=== PATIENT | male | born 1955 | race Caucasian/White ===

== ENCOUNTER 2017-06-05 08:13 | Day surgery (SDC) | payer MEDICARE, MEDICAID ==
[2017-06-05] MEDS ORDERED: Propofol 200 MG/20 ML SDV IV ONE (08:14)
[2017-06-05] MEDS ORDERED: Lactated Ringers 1,000 ML IV SCH (08:30)
[2017-06-05 09:07] VITALS: BP 143/103
--- NOTE | 2017-06-05 10:51 | PCM.OPNOTE ---
- General Post-Op/Procedure Note Date of Surgery/Procedure: 06/05/17 Operative Procedure(s): c scope with hot loop and cold forcep biopsy. Findings: cecal polyp x 2 descending colon polyp sigmoid colon polyp Pre Op Diagnosis: personal hx of colon polyps. prostate cancer Post-Op Diagnosis: cecal polyp x 2. descending colon polyp. sigmoid colon polyp Anesthesia Technique: MAC Primary Surgeon: Jorje Manriquez Anesthesia Provider: Joanie Moore Pathology: cecal polyp x 2 descending colon polyp sigmoid colon polyp EBL in mLs: 0 Complications: None Condition: Good Free Text/Narrative:: see dictation
--- NOTE | 2017-06-05 17:38 | OR ---
DATE OF OPERATION: 06/05/2017 SURGEON: Jorje Manriquez MD PROCEDURE PERFORMED: Colonoscopy with hot loop and cold forceps biopsy. PREOPERATIVE DIAGNOSES: Personal history of colon polyps as well as history of prostate cancer. POSTOPERATIVE DIAGNOSES: Cecal polyp x2, descending colon polyp, and sigmoid colon polyp. INDICATIONS FOR PROCEDURE: Mr. Gray is a 62-year-old white male who is due for a followup colonoscopy in several years. He has a personal history of adenomatous colon polyps. However, he is scheduled for a procedure for his prostate cancer at [facility] in [place], and they are requesting an early colonoscopy to ensure that his colon is clear of any significant pathology. DESCRIPTION OF PROCEDURE: After an excellent IV sedation was administered, digital rectal exam was performed. No marked abnormality was noted. The flexible colonoscope was inserted and advanced to the cecum without difficulty. The following findings were noted: Ascending colon: In the cecum, there were 2 polyps, one small polypoid lesion approximately 2 mm in size. This was biopsied, and in the same area was a sessile-appearing lesion approximately 8 mm in size, and this was biopsied with a combination of hot loop and cold forceps biopsy. Remainder of the ascending colon was unremarkable. Transverse colon was unremarkable. Descending colon: A small polyp, biopsied with cold biopsy forceps and sent for permanent. This was approximately 5 mm in size. Sigmoid colon: Small, sessile-appearing lesion roughly 5 mm, biopsied with the hot loop snare. Rectum and anus unremarkable. Colon was deflated as the scope was removed. The patient tolerated the procedure well and was taken to Recovery in good condition. /[id number] /MODL
== END 2017-06-05 11:53 | disposition home or self-care (01) ==
LOC: FB.SDS 08:13
PROVIDERS: ATTEND Surgery
DX: Z12.11 Encounter for screening for malignant neoplasm of colon (principal); D12.0 Benign neoplasm of cecum; D12.5 Benign neoplasm of sigmoid colon; K63.5 Polyp of colon; Z86.010 Personal history of colon polyps; Z79.899 Other long term (current) drug therapy; F17.210 Nicotine dependence, cigarettes, uncomplicated
CPT/HCPCS: 00811-QZ; 88305; J2704; J7120

== ENCOUNTER 2017-09-14 15:18 | Emergency (ER) | payer MEDICARE, MEDICAID ==
--- NOTE | 2017-09-14 15:54 | EDM.PDOC ---
ED HPI GENERAL MEDICAL PROBLEM - General Chief Complaint: Genitourinary Problem Stated Complaint: ISSUE WITH CATH Time Seen by Provider: 09/14/17 15:30 Source of Information: Reports: Patient, Family History Limitations: Reports: No Limitations - History of Present Illness INITIAL COMMENTS - FREE TEXT/NARRATIVE: Liam comes into [facility] ED with a leaking Felton catheter, status post TURP at [facility] September 04, 2017. He is wearing a leg bag which appears to be functioning normally. He has not observed any blood or discoloration in clothing. Inspection of catheter reveals a cracked device of the Felton with some seepage of urine at the connection. An attempt to repair is suggested before replacement , scheduled in 1 week. - Related Data Allergies Allergy/AdvReac Type Severity Reaction Status Date / Time No Known Allergies Allergy Verified 09/14/17 15:39 Home Meds: Home Meds Albuterol Sulfate [Proair Hfa] 1 - 2 puff INH Q4H PRN 01/11/15 [History] Aspirin [Halfprin] 81 mg PO DAILY 01/11/15 [History] Budesonide/Formoterol [Symbicort 160-4.5 MCG] 2 puff INH BID 01/11/15 [History] Losartan Potassium [Cozaar] 50 mg PO DAILY 01/11/15 [History] Multivitamin with Minerals [Multiple Vitamin] 1 tab PO DAILY 01/11/15 [History] Sildenafil [Viagra] 100 mg PO BEDTIME PRN 01/11/15 [History] Varenicline [Chantix] 1 mg PO BID 06/04/17 [History] Past Medical History HEENT History: Reports: Impaired Vision, Macular Degeneration Cardiovascular History: Reports: Hypertension Respiratory History: Reports: Asthma Gastrointestinal History: Reports: Colon Polyp Other Gastrointestinal History: COLON POLYPS Genitourinary History: Reports: Other (See Below) Other Genitourinary History: prostate CA Musculoskeletal History: Reports: Fracture Neurological History: Reports: None Psychiatric History: Reports: None Endocrine/Metabolic History: Reports: Obesity/BMI 30+ Hematologic History: Reports: None Immunologic History: Reports: None Oncologic (Cancer) History: Reports: Prostate Dermatologic History: Reports: None - Past Surgical History Head Surgeries/Procedures: Reports: None HEENT Surgical History: Reports: None Cardiovascular Surgical History: Reports: None Respiratory Surgical History: Reports: None GI Surgical History: Reports: Colonoscopy, Hernia Repair/Other Male Surgical History: Reports: Prostate Biopsy, Vasectomy Endocrine Surgical History: Reports: None Neurological Surgical History: Reports: None Musculoskeletal Surgical History: Reports: Other (See Below) Other Musculoskeletal Surgeries/Procedures:: neck surgery, ankle surgery with plates installed, sternum fx with surgery Dermatological Surgical History: Reports: None Social & Family History - Caffeine Use Caffeine Use: Reports: Coffee ED ROS GENERAL - Review of Systems Review Of Systems: ROS reveals no pertinent complaints other than HPI. ED EXAM, RENAL/ - Physical Exam Exam: See Below Exam Limited By: No Limitations General Appearance: Alert, WD/WN, No Apparent Distress Head: Normocephalic Neck: Normal Inspection, Supple, Non-Tender Respiratory/Chest: Lungs Clear, Normal Breath Sounds, Chest Non-Tender Cardiovascular: Regular Rate, Rhythm, No Murmur GI/Abdominal: Normal Bowel Sounds, Soft, Non-Tender, No Organomegaly, No Distention, No Mass (Male) Exam: No Hernia, Normal Inspection, Circumcised Rectal (Males) Exam: Deferred Back Exam: Normal Inspection Extremities: Normal Inspection Neurological: Alert, Oriented, CN II-XII Intact, Normal Cognition, Normal Gait, No Motor/Sensory Deficits Psychiatric: Normal Affect, Normal Mood Skin Exam: Warm, Dry, Intact Lymphatic: No Adenopathy Course - Vital Signs Text/Narrative:: Efforts to seal the defective device were unsuccessful, so Liam was given a clamp to wear on the Felton cath that will be released every 6 hrs into the leg bag or the commode for convenience. This seems to have solved the leaking problem ahead of his follow up appt at [facility]. Last Recorded V/S: Last Vital Signs Temp 36.8 C 09/14/17 15:35 Pulse 79 09/14/17 15:35 Resp 18 09/14/17 15:35 BP 147/78 H 09/14/17 15:35 Pulse Ox 98 09/14/17 15:35 Departure - Departure Time of Disposition: 16:20 Disposition: Home, Self-Care 01 Condition: Good Clinical Impression: S/P TURP (status post transurethral resection of prostate) - Discharge Information Instructions: Indwelling Urinary Catheter Care, Adult Referrals: Alvaro Campa MD [Primary Care Provider] - Forms: ED Department Discharge Additional Instructions: Clamp catheter and empty as needed, or every 6 hours. Keep appointment at [facility] for removal of catheter. Return if problems occur. - Problem List & Annotations (1) S/P TURP (status post transurethral resection of prostate) SNOMED Code(s): 995519999, 988371559 Code(s): Z90.79 - ACQUIRED ABSENCE OF OTHER GENITAL ORGAN(S) Status: Acute Current Visit: Yes Annotation/Comment:: Follow up at [facility]. Release clamp every 6 hrs. - Problem List Review Problem List Initiated/Reviewed/Updated: Yes - Assessment/Plan Plan: Follow up at [facility].
[2017-09-14 16:26] VITALS: BP 136/96
== END 2017-09-14 16:24 | disposition home or self-care (01) ==
LOC: FB.ED 15:18
DX: T83.038A Leakage of other urinary catheter, initial encounter (principal); I10 Essential (primary) hypertension; E66.9 Obesity, unspecified; Z90.79 Acquired absence of other genital organ(s); Z79.82 Long term (current) use of aspirin; Z79.899 Other long term (current) drug therapy; Z98.890 Other specified postprocedural states
CPT/HCPCS: 99282; 99283

== ENCOUNTER 2017-10-10 08:52 | Emergency (ER) | payer MEDICARE, MEDICAID ==
[2017-10-10] MEDS ORDERED: Ondansetron 4 MG/2 ML SDV IVPUSH ONE (09:40)
[2017-10-10] MEDS ORDERED: HYDROmorphone 2 MG/ML SDV IVPUSH ONE (09:40)
[2017-10-10] MEDS ORDERED: Sodium Chloride 0.9% 1,000 ML IV SCH (09:45)
[2017-10-10] MEDS ORDERED: Sodium Chloride 0.9% 10 ML Syringe FLUSH PRN (09:48)
[2017-10-10 12:08] VITALS: BP 129/81
--- NOTE | 2017-10-10 12:41 | ER ---
DATE SEEN: 10/10/2017 HISTORY OF PRESENT ILLNESS: This is a 62-year-old man who had a suprapubic robotic prostatectomy on 09/04/2016. He was briefly catheterized and went home. He presents today with urinary outlet obstructive symptoms with suprapubic pain and passing red clot and then inability to pass a urine after that since 3 a.m. The patient was followed by Dr. Rafael Gallego, [facility]. He is status post robotic suprapubic prostatectomy for a Bebeto 4 + 4 equals 8 adenocarcinoma of prostate. He has a history of elevated PSA. Patient is afebrile. Does not feel lightheaded, has significant 8/10 pain in the suprapubic region with mild CVA percussion tenderness. PAST MEDICAL HISTORY: Status post TURP, status post robotic total prostatectomy, polypectomy, hypertension, and asthma. CURRENT MEDICATIONS: 1. Symbicort 160/4.5. 2. Dulcolax. 3. Albuterol p.r.n. for COPD. SOCIAL HISTORY: Patient is status post smoker. He is retired. REVIEW OF SYSTEMS: Negative except for noted above in HPI. PHYSICAL EXAMINATION: VITAL SIGNS: Marked hypertension secondary to pain, 174/95, heart rate 82, respirations 16, oxygen saturation 97% on room air, temperature 36.4 degrees centigrade. BMI 31.2 kg per meter squared and 104.3 kilos, 1.83 meters. GENERAL: The patient has marked pain, has moderate flushing. HEENT: He has moderate [place] feet secondary to smoking history. Pharynx without abnormality. Slightly husky voice. LUNGS: Clear without rales, rhonchi, or wheezes. HEART: S1, S2. No murmur. No tachycardia. ABDOMEN: Soft with moderate suprapubic dullness and pressure discomfort. Ultrasound demonstrates 400+ mL urine in between the bladder. : Penis normal appearance. Testes normal. LOWER EXTREMITIES: Without edema. ASSESSMENT AND PLAN: Quick look ultrasound 400 to 500 mL urine noted. 14-gauge 3-way catheter placed. . Has 300 mL output. His past was discussed with urologist, Dr. Pyle at [facility] and he suggested the patient return to [place] because it is unusual anastomosis that would be something that needs further evaluation and followup by Dr. Gallego and his prostate cancer team. The patient will be transferred to [facility]. For transportation, his will be taking. The patient received saline flush with 200 mL IV fluid, Dilaudid 1 mg IV push and Zofran 8 mg IV and 1000 mL of normal saline. The patient was markedly relieved after Felton was placed. There was hematuria noted in the Felton. Urine culture pending. Urinalysis, pH 7, protein 500, large occult blood, moderate LES, packed rbc's. No bacteria noted. Complete metabolic panel normal except for a C-reactive protein 2.3 and sodium 130, chloride 95, potassium 4.2, white count 8200, PMNs 73, lymphocytes 19, monos 8, MCV elevated at 98, platelets 234,000. ASSESSMENT: Post Bebeto 4 + 4 prostate cancer with outlet obstruction, hematuria relieved with catheterization 14-Syriac Felton, transient hypertension secondary to pain, resolved with discharge blood pressure 118/70, heart rate 72, respirations 15, oxygen saturation 96%, and temperature 36.7 degrees centigrade. I have spoken to Fer at admissions/nurse Phys[facility] at [facility] and advised the patient be transferred to [facility], Dr. Chaparro. Fer's specific telephone #[phone]. The patient was seen at 0915. /[id number] BESSIE/MURALI MCLEOD
== END 2017-10-10 11:50 ==
LOC: FB.ED 08:52
DX: C61 Malignant neoplasm of prostate (principal); I10 Essential (primary) hypertension; J44.9 Chronic obstructive pulmonary disease, unspecified; F17.200 Nicotine dependence, unspecified, uncomplicated; Z90.49 Acquired absence of other specified parts of digestive tract
CPT/HCPCS: 36415; 51702; 80053; 81001; 83605; 85025; 86140; 87086; 87088; 87186; 96361; 96374; 96375; 99283; 99284; J1170; J2405; J7030; J7050

== ENCOUNTER 2023-03-04 08:11 | Day surgery (SDC) | payer MEDICARE, OTHER ==
[2023-03-04] MEDS ORDERED: Propofol 200 MG/20 ML SDV IV ONE (08:12)
[2023-03-04] MEDS ORDERED: Midazolam 1 MG/ML 2 ML SDV IV ONE (08:12)
[2023-03-04] MEDS ORDERED: Lactated Ringers 1,000 ML IV SCH (08:30)
[2023-03-04] MEDS ORDERED: Sodium Chloride 0.9% 10 ML Syringe FLUSH PRN (08:30)
[2023-03-04] MEDS ORDERED: Simethicone Drops 40 MG/0.6 ML 30 ML Bottle ONE (10:21)
[2023-03-04 10:24] VITALS: PULSE 67
[2023-03-04 12:06] VITALS: BP 160/97
== END 2023-03-04 11:49 | disposition home or self-care (01) ==
LOC: FB.SDS 08:11
PROVIDERS: ATTEND Surgery
DX: Z12.11 Encounter for screening for malignant neoplasm of colon (principal); D12.6 Benign neoplasm of colon, unspecified; K57.30 Diverticulosis of large intestine without perforation or abscess without bleeding; J44.9 Chronic obstructive pulmonary disease, unspecified; F17.210 Nicotine dependence, cigarettes, uncomplicated; Z79.899 Other long term (current) drug therapy; Z98.890 Other specified postprocedural states
CPT/HCPCS: 00811; 45385; 88305; A9270; J2250; J2704; J7120

== ENCOUNTER 2023-05-22 16:02 | Emergency (ER) | payer MEDICARE ==
[2023-05-22] MEDS: Cephalexin 500 MG Cap PO ONE (18:15)
[2023-05-22 18:40] VITALS: BP 162/93; PULSE 74
== END 2023-05-22 18:31 | disposition home or self-care (01) ==
LOC: FB.ED 16:02
DX: T24.232A Burn of second degree of left lower leg, initial encounter (principal); I10 Essential (primary) hypertension; F17.210 Nicotine dependence, cigarettes, uncomplicated; J45.909 Unspecified asthma, uncomplicated; Z79.899 Other long term (current) drug therapy; X08.8XXA Exposure to other specified smoke, fire and flames, initial encounter
CPT/HCPCS: 99283; A9270